=== PATIENT | female | born 1945 | race Caucasian/White ===

== ENCOUNTER → 2017-04-18 | Outpatient (CLI) | payer MEDICARE, OTHER ==
--- NOTE | 2017-04-19 13:32 | MM ---
Reason for exam: screening (asymptomatic). Last mammogram was performed 1 year ago. History: Patient is postmenopausal. Family history of breast cancer in mother at age 30 and breast cancer in paternal grandmother at age 80. Benign excisional biopsy of the right breast, 1990. Benign excisional biopsy of the right breast, 1984. Benign excisional biopsy of the right breast. Physical Findings: A clinical breast exam by your physician is recommended on an annual basis and results should be correlated with mammographic findings. MG 3D Screening Mammo W/Cad Bilateral CC and MLO view(s) were taken. Prior study comparison: April 16, 2016, bilateral MG 3d screening mammo w/cad. April 17, 2015, right breast MG work up mamm w CAD RT. The breast tissue is heterogeneously dense. This may lower the sensitivity of mammography. No significant changes when compared with prior studies. ASSESSMENT: Benign, BI-RAD 2 RECOMMENDATION: Routine screening mammogram of both breasts in 1 year.
== END | disposition home or self-care (01) ==
LOC: RADMAMWWP 09:43
PROVIDERS: ATTEND Family Medicine
DX: Z12.31 Encounter for screening mammogram for malignant neoplasm of breast (principal)
CPT/HCPCS: 77063; G0202

== ENCOUNTER 2018-02-15 07:48 | Day surgery (SDC) | payer MEDICARE, OTHER ==
[2018-02-13 09:13] VITALS: BMI 21.9
[~2018-02-15 07:48] MED LIST: LACTATED RINGERS 1,000 ML IV SCH
[2018-02-15 08:16] VITALS: TEMP 99
[2018-02-15 08:32] LABS: Glucose,Whole Blood 97 mg/dL (75-99)
[2018-02-15] MEDS ORDERED: PROPOFOL 10 MG/ML 20 ML VIAL IV ONE (08:34)
--- NOTE | 2018-02-15 08:39 | P.GSHP ---
History of Present Illness H&P Date: 02/15/18 CHIEF COMPLAINT: Colon screen HISTORY OF PRESENT ILLNESS: The patient is a 72-year-old female who presents for colon screen. Lower endoscopy was offered for further evaluation and management. PAST MEDICAL HISTORY: Please see list. PAST SURGICAL HISTORY: Please see list. MEDICATIONS: Please see list. ALLERGIES: Please see list. SOCIAL HISTORY: No illicit drug use FAMILY HISTORY: No reports of Crohn disease or ulcerative colitis. REVIEW OF ORGAN SYSTEMS: CONSTITUTIONAL: No reports of fevers or chills. PHYSICAL EXAM: VITAL SIGNS: Stable GENERAL: Well-developed pleasant in no acute distress. HEENT: No scleral icterus. Extraocular movements grossly intact. Moist buccal mucosa. NECK: Supple without lymphadenopathy. CHEST: Unlabored respirations. Equal bilateral excursions. CARDIOVASCULAR: Regular rate and rhythm. Distal 2+ pulses. ABDOMEN: Soft, nontender, nondistended. MUSCULOSKELETAL: No clubbing, cyanosis, or edema. ASSESSMENT: 1. Colon screen. PLAN: 1. Recommend proceeding with a lower endoscopy Past Medical History Past Medical History: Diabetes Mellitus, Hyperlipidemia, Hypertension Additional Past Medical History / Comment(s): "extra heart beat on occasion" History of Any Multi-Drug Resistant Organisms: None Reported Past Surgical History: Cholecystectomy Past Anesthesia/Blood Transfusion Reactions: Previous Problems w/ Anesthesia Additional Past Anesthesia/Blood Transfusion Reaction / Comment(s): "came to during last colonoscopy" Smoking Status: Never smoker - Past Family History Mother Family Medical History: No Reported History Sister(s) Additional Family Medical History / Comment(s): "bleeding in spine she had been on blood thinner" Medications and Allergies Home Medications Medication Instructions Recorded Confirmed Type Aspirin EC [Ecotrin] 81 mg PO DAILY 03/21/14 02/15/18 History Atorvastatin [Lipitor] 40 mg PO DAILY 03/21/14 02/15/18 History Carvedilol [Coreg] 25 mg PO BID 03/21/14 02/15/18 History Omeprazole [PriLOSEC] 20 mg PO DAILY 03/21/14 02/15/18 History Telmisartan 40 mg PO HS 03/21/14 02/15/18 History metFORMIN HCL [Glucophage] 500 mg PO TID 03/21/14 02/15/18 History Cholecalciferol (Vitamin D3) 2,000 unit PO DAILY 02/13/18 02/15/18 History [Vitamin D3] Multivitamins, Thera [Multivitamin 1 tab PO DAILY 02/13/18 02/15/18 History (formulary)] Telmisartan/Hydrochlorothiazid 1 tab PO DAILY 02/13/18 02/15/18 History [Telmisartan-Hctz 40-12.5 mg Tb] amLODIPine BESYLATE [Norvasc] 5 mg PO BID 02/13/18 02/15/18 History Allergies Allergy/AdvReac Type Severity Reaction Status Date / Time codeine AdvReac Nausea Verified 02/13/18 08:59 Surgical - Exam Vital Signs Temp Pulse Resp BP Pulse Ox 99.0 F 68 14 120/71 95 02/15/18 08:15 02/15/18 08:15 02/15/18 08:15 02/15/18 08:15 02/15/18 08:15
--- NOTE | 2018-02-15 09:06 | P.PCN ---
Date of Procedure: 02/15/18 Description of Procedure: PREOPERATIVE DIAGNOSIS: Colonoscopy screening. POSTOPERATIVE DIAGNOSIS: Colonoscopy screening. Diverticulosis, severe sigmoid colon External hemorrhoids Internal hemorrhoids OPERATION: Colonoscopy to the ileocecal valve. SURGEON: Juanita Ross MD. ANESTHESIA: MAC. INDICATIONS: The patient is a 72-year-old female who presents for colonoscopy screening. Benefits and risks were described and informed consent was obtained. DESCRIPTION OF PROCEDURE: The patient had undergone Gatorade, MiraLAX and Dulcolax prep. She had been brought into the operating room and laid in the left lateral decubitus position. After adequate intravenous sedation, the rectum was examined with 2% lidocaine jelly. External hemorrhoids were encountered. The rectal tone was within normal limits. No lesions were palpated in the rectal vault. An Olympus colonoscope was advanced to the ascending colon. She had severe redundant and tortuous sigmoid colon. The ileocecal valve was briefly viewed. The prep was good. The scope was removed with visualization of each mucosal fold. Severe sigmoid [place] diverticulosis was encountered. No colonic polyps were found. No evidence of focal colitis was found. Retroflexion of the scope demonstrated grade 2 internal hemorrhoids without active bleeding or inflammation. The colon was desufflated. The patient had tolerated the procedure well. Withdrawal time was over 6 minutes. FINDINGS: Internal hemorrhoids, grade 2 External prolapsed hemorrhoids, grade 3 No arteriovenous malformations. No adenomatous polyps. No focal colitis. Severe redundant sigmoid diverticulosis. RECOMMENDATIONS: Lower endoscopy in 5 years, 2022 Plan - Discharge Summary New Discharge Prescriptions: No Action metFORMIN HCL [Glucophage] 500 mg PO TID Telmisartan 40 mg PO HS Omeprazole [PriLOSEC] 20 mg PO DAILY Carvedilol [Coreg] 25 mg PO BID Aspirin EC [Ecotrin] 81 mg PO DAILY Atorvastatin [Lipitor] 40 mg PO DAILY amLODIPine BESYLATE [Norvasc] 5 mg PO BID Multivitamins, Thera [Multivitamin (formulary)] 1 tab PO DAILY Telmisartan/Hydrochlorothiazid [Telmisartan-Hctz 40-12.5 mg Tb] 1 tab PO DAILY Cholecalciferol (Vitamin D3) [Vitamin D3] 2,000 unit PO DAILY Discharge Medication List Aspirin EC [Ecotrin] 81 mg PO DAILY 03/21/14 [History] Atorvastatin [Lipitor] 40 mg PO DAILY 03/21/14 [History] Carvedilol [Coreg] 25 mg PO BID 03/21/14 [History] Omeprazole [PriLOSEC] 20 mg PO DAILY 03/21/14 [History] Telmisartan 40 mg PO HS 03/21/14 [History] metFORMIN HCL [Glucophage] 500 mg PO TID 03/21/14 [History] Cholecalciferol (Vitamin D3) [Vitamin D3] 2,000 unit PO DAILY 02/13/18 [History] Multivitamins, Thera [Multivitamin (formulary)] 1 tab PO DAILY 02/13/18 [History ] Telmisartan/Hydrochlorothiazid [Telmisartan-Hctz 40-12.5 mg Tb] 1 tab PO DAILY 02/13/18 [History] amLODIPine BESYLATE [Norvasc] 5 mg PO BID 02/13/18 [History]
[2018-02-15 09:21] LABS: Glucose,Whole Blood 98 mg/dL (75-99)
[2018-02-15 09:30] VITALS: BP 98/54; PULSE 68; RESP 16
== END 2018-02-15 09:51 | disposition home or self-care (01) ==
LOC: ORWHC2ENDO 07:48
PROVIDERS: ATTEND Surgery Plastic and Reconstructive Surgery
DX: Z12.11 Encounter for screening for malignant neoplasm of colon (principal); K57.30 Diverticulosis of large intestine without perforation or abscess without bleeding; K64.1 Second degree hemorrhoids; K64.4 Residual hemorrhoidal skin tags; Q43.8 Other specified congenital malformations of intestine; E11.9 Type 2 diabetes mellitus without complications; E78.5 Hyperlipidemia, unspecified; I10 Essential (primary) hypertension; K21.9 Gastro-esophageal reflux disease without esophagitis; Z90.49 Acquired absence of other specified parts of digestive tract; Z79.84 Long term (current) use of oral hypoglycemic drugs; Z79.82 Long term (current) use of aspirin; Z79.899 Other long term (current) drug therapy; Z88.5 Allergy status to narcotic agent
CPT/HCPCS: J2704; G0121; 45378

== ENCOUNTER → 2018-03-13 | Outpatient (CLI) | payer MEDICARE, OTHER ==
[2018-03-13 10:39] LABS: Blood Urea Nitrogen 15 mg/dL (7-17)
--- NOTE | 2018-03-13 12:33 | CT ---
EXAMINATION TYPE: CT abdomen pelvis w con DATE OF EXAM: 03/13/2018 COMPARISON: March 21, 2014 HISTORY: Patient complains of diverticulosis. CT DLP: 723 mGycm CONTRAST: CT scan of the abdomen and pelvis is performed with Oral Contrast and with IV Contrast, patient injec michael with 100 mL of Isovue 300. FINDINGS: LUNG BASES-: Left-sided pneumonectomy changes again appreciated with elevation left hemidiaphragm. LIVER/GB: No calcified gallstones. No space occupying hepatic lesion. Biliary tree is of normal ca liber. PANCREAS: No inflammation. No distinct mass. SPLEEN: No splenic enlargement. No lesion seen. ADRENALS: No nodule. No thickening. KIDNEYS/BLADDER: No hydronephrosis. No nephrolithiasis. No distinct renal mass. Urinary bladder g rossly unremarkable. BOWEL: Normal appendix. Normal bowel caliber. No inflammation. Fat-containing umbilical hernia. Sig moid diverticulosis without diverticulitis. GENITAL ORGANS: No gross abnormality. LYMPH NODES: No greater than 1cm abdominal or pelvic lymph nodes are appreciated. AORTA: No significant abnormality. OSSEOUS STRUCTURES: No significant abnormality is seen. OTHER: No significant additional abnormality is seen. IMPRESSION: 1. No acute process identified. 2. Sigmoid diverticulosis without diverticulitis.
== END | disposition home or self-care (01) ==
LOC: RADCTMAIN 09:56
PROVIDERS: ATTEND Surgery Plastic and Reconstructive Surgery
DX: K57.30 Diverticulosis of large intestine without perforation or abscess without bleeding (principal)
CPT/HCPCS: 82565; 84520; 74177; 36415; Q9967

== ENCOUNTER → 2018-04-19 | Outpatient (CLI) | payer MEDICARE, OTHER ==
--- NOTE | 2018-04-19 16:22 | BD ---
EXAMINATION TYPE: Axial Bone Density DATE OF EXAM: 04/19/2018 COMPARISON: NONE CLINICAL HISTORY: Height: 5 FT 1 IN Weight: 129 FRAX RISK QUESTIONS: Family History (Parent hip fracture): YES Secondary Osteoporosis: RISK FACTORS HISTORY OF: Active: YES Postmenopausal woman: AGE 57 Lost more than 2 inches in height since high school: YES MEDICATIONS: Additional Medications: TELMISARTAN HTC, METFORMIN, AMLODIPINE BESYLATE, COREG, LIPITOR Additional History: EXAM MEASUREMENTS: Bone mineral densitometry was performed using the [employer] System. Bone mineral density as measured about the Lumbar spine is: ----- L1-L4(G/cm2): 1.395 T Score Values are as follows: ----- L2: 1.6 ----- L3: 2.2 ----- L4: 2.4 ----- L1-L4: 1.8 Bone mineral density has: INCREASED 1.9 % since study of: 2015 Bone mineral density about the R hip (g/cm2): 0.905 Bone mineral density about the L hip (g/cm2): 0.881 T Score values are as follows: -----R Neck: -1.0 -----L Neck: -1.1 -----R Total: 0.0 -----L Total: -0.3 Bone mineral density has: DECREASED -1.0 % since study of: 2015 IMPRESSION: Osteopenia (T Score between -2.5 and -1). There is slightly increased risk of fracture and the patient may be considered for treatment. Re-Screen 2-5 years. NOTE: T-SCORE=SD OF THE YOUNG ADULT MEAN.
--- NOTE | 2018-04-20 15:21 | MM ---
Reason for exam: screening (asymptomatic). Last mammogram was performed 1 year ago. History: Patient is postmenopausal. Family history of breast cancer in mother at age 30 and breast cancer in paternal grandmother at age 80. Benign excisional biopsy of the right breast, 1990. Benign excisional biopsy of the right breast, 1984. Benign excisional biopsy of the right breast. Physical Findings: A clinical breast exam by your physician is recommended on an annual basis and results should be correlated with mammographic findings. MG 3D Screening Mammo W/Cad Bilateral CC and MLO view(s) were taken. Prior study comparison: April 18, 2017, bilateral MG 3d screening mammo w/cad. April 16, 2016, bilateral MG 3d screening mammo w/cad. The breast tissue is heterogeneously dense. This may lower the sensitivity of mammography. Stable benign calcifications. There is no discrete abnormality. No significant changes when compared with prior studies. ASSESSMENT: Benign, BI-RAD 2 RECOMMENDATION: Routine screening mammogram of both breasts in 1 year.
== END ==
LOC: RADMAMWWP 14:29
PROVIDERS: ATTEND Family Medicine
DX: Z12.31 Encounter for screening mammogram for malignant neoplasm of breast (principal); M85.80 Other specified disorders of bone density and structure, unspecified site; Z78.0 Asymptomatic menopausal state
CPT/HCPCS: 77063; 77067; 77080

== ENCOUNTER → 2019-04-20 | Outpatient (CLI) | payer MEDICARE, OTHER ==
--- NOTE | 2019-04-24 08:35 | MM ---
Reason for exam: screening (asymptomatic). Last mammogram was performed 1 year ago. History: Patient is postmenopausal. Family history of breast cancer in mother at age 30 and breast cancer in paternal grandmother at age 80. Benign excisional biopsy of the right breast, 1990. Benign excisional biopsy of the right breast, 1984. Benign excisional biopsy of the right breast. Physical Findings: A clinical breast exam by your physician is recommended on an annual basis and results should be correlated with mammographic findings. MG 3D Screening Mammo W/Cad Bilateral CC and MLO view(s) were taken. Prior study comparison: April 19, 2018, bilateral MG 3d screening mammo w/cad. April 18, 2017, bilateral MG 3d screening mammo w/cad. There are scattered fibroglandular densities. No significant changes when compared with prior studies. ASSESSMENT: Negative, BI-RAD 1 RECOMMENDATION: Routine screening mammogram of both breasts in 1 year.
== END | disposition home or self-care (01) ==
LOC: RADMAMWWP 08:50
PROVIDERS: ATTEND Family Medicine
DX: Z12.31 Encounter for screening mammogram for malignant neoplasm of breast (principal)
CPT/HCPCS: 77063; 77067

== ENCOUNTER → 2020-04-30 | Outpatient (CLI) | payer MEDICARE, OTHER ==
--- NOTE | 2020-04-30 09:44 | BD ---
EXAMINATION TYPE: Axial Bone Density DATE OF EXAM: 04/30/2020 COMPARISON: NONE CLINICAL HISTORY: Postmenopausal female Height: 62 Weight: 120.6 FRAX RISK QUESTIONS: Alcohol (3 or more units per day): no Family History (Parent hip fracture): yes Glucocorticoids (More than 3mos): no (Ex: prednisone, prednisolone, methylprednisolone, dexamethasone, and hydrocortisone). History of Fracture in Adulthood: no Secondary Osteoporosis: 1. Type 1 Diabetes: no 2. Hyperthyroidism: no 3. Menopause before 45: no 4. Malnutrition: no 5. Chronic liver disease: no Rheumatoid Arthritis: no Current Tobacco Use: no RISK FACTORS HISTORY OF: Family History of Osteoporosis: no Active: yes Diet low in dairy products/other sources of calcium: yes Postmenopausal woman: age 57 Lost more than 2 inches in height since high school: yes MEDICATIONS: TELMISARTAN HTC, METFORMIN, AMLODIPINE BESYLATE, COREG , LIPITOR Additional History: EXAM MEASUREMENTS: Bone mineral densitometry was performed using the [employer] System. Bone mineral density as measured about the Lumbar spine is: ----- L1-L4(G/cm2): 1.376 T Score Values are as follows: ----- L2: 1.0 ----- L3: 2.5 ----- L4: 2.5 ----- L1-L4: 1.6 Bone mineral density has: decreased -0.4 % since study of: 04.19.2018 Bone mineral density about the R hip (g/cm2): 0.928 Bone mineral density about the L hip (g/cm2): 0.884 T Score values are as follows: -----R Neck: -0.8 -----L Neck: -1.1 -----R Total: 0.1 -----L Total: -0.4 Bone mineral density has: decreased -0.6 % since study of: 04.19.2018 IMPRESSION: Normal (Values between +1 and -1 indicate normal bone mass). Consider repeating this study in 5 year s or sooner if there is some new clinical indication. NOTE: T-SCORE=SD OF THE YOUNG ADULT MEAN.
--- NOTE | 2020-05-01 09:02 | MM ---
Reason for exam: screening (asymptomatic). Last mammogram was performed 1 year ago. History: Patient is postmenopausal. Family history of breast cancer in mother at age 30 and breast cancer in paternal grandmother at age 80. Benign excisional biopsy of the right breast, 1990. Benign excisional biopsy of the right breast, 1984. Benign excisional biopsy of the right breast. Physical Findings: A clinical breast exam by your physician is recommended on an annual basis and results should be correlated with mammographic findings. MG 3D Screening Mammo W/Cad Bilateral CC and MLO view(s) were taken. Prior study comparison: April 20, 2019, bilateral MG 3d screening mammo w/cad. April 19, 2018, bilateral MG 3d screening mammo w/cad. The breast tissue is heterogeneously dense. This may lower the sensitivity of mammography. Focal asymmetry upper left MLO view. ASSESSMENT: Incomplete: need additional imaging evaluation, BI-RAD 0 RECOMMENDATION: Special view mammogram of the left breast. If lesion persists on supplemental views, image directed ultrasound is recommended. [facility] will attempt to contact patient to return for supplemental views and ultrasound if indicated.
== END | disposition home or self-care (01) ==
LOC: RADMAMWWP 08:14
PROVIDERS: ATTEND Family Medicine
DX: Z12.31 Encounter for screening mammogram for malignant neoplasm of breast (principal); Z78.0 Asymptomatic menopausal state
CPT/HCPCS: 77063; 77067; 77080

== ENCOUNTER → 2020-05-02 | Outpatient (CLI) | payer MEDICARE, OTHER ==
--- NOTE | 2020-05-02 08:28 | MM ---
Reason for exam: additional evaluation requested from abnormal screening. Last mammogram was performed less than 1 month ago. History: Patient is postmenopausal. Family history of breast cancer in mother at age 30 and breast cancer in paternal grandmother at age 80. Benign excisional biopsy of the right breast, 1990. Benign excisional biopsy of the right breast, 1984. Benign excisional biopsy of the right breast. Physical Findings: Nurse did not find any significant physical abnormalities on exam. MG 3D Work Up W/Cad LT Spot compression CC, spot compression MLO, and LM view(s) were taken of the left breast. Prior study comparison: April 30, 2020, bilateral MG 3d screening mammo w/cad. April 20, 2019, bilateral MG 3d screening mammo w/cad. Persistent density 5cm from nipple 3-4 o'clock left breast. These results were verbally communicated with the patient and result sheet given to the patient on 05/02/20. ASSESSMENT: Incomplete: need additional imaging evaluation, BI-RAD 0 RECOMMENDATION: Ultrasound of the left breast.
--- NOTE | 2020-05-02 08:29 | USB ---
Reason for exam: additional evaluation requested from abnormal screening. History: Patient is postmenopausal. Family history of breast cancer in mother at age 30 and breast cancer in paternal grandmother at age 80. Benign excisional biopsy of the right breast, 1990. Benign excisional biopsy of the right breast, 1984. Benign excisional biopsy of the right breast. US Breast Workup Limited LT Left limited breast ultrasound including focal area of concern, retroareolar and axilla demonstrates no cystic or solid lesion seen. These results were verbally communicated with the patient and result sheet given to the patient on 05/02/20. ASSESSMENT: Probably benign, BI-RAD 3 RECOMMENDATION: Follow-up diagnostic mammogram of the left breast in 6 months.
== END | disposition home or self-care (01) ==
LOC: RADMAMWWP 06:54
PROVIDERS: ATTEND Family Medicine
DX: R92.8 Other abnormal and inconclusive findings on diagnostic imaging of breast (principal)
CPT/HCPCS: 77065; 76642; G0279; 77061

== ENCOUNTER → 2020-11-26 | Outpatient (CLI) | payer MEDICARE, OTHER ==
--- NOTE | 2020-11-26 10:05 | MM ---
Reason for exam: follow-up at short interval from prior study. Last mammogram was performed 7 months ago. History: Patient is postmenopausal. Family history of breast cancer in mother at age 30 and breast cancer in paternal grandmother at age 80. Benign excisional biopsy of the right breast, 1990. Benign excisional biopsy of the right breast, 1984. Benign excisional biopsy of the right breast. Physical Findings: Nurse did not find any significant physical abnormalities on exam. MG 3D Diag Mammo W/Cad LT CC and MLO view(s) were taken of the left breast. Prior study comparison: May 02, 2020, left breast MG 3d work up w/cad LT. April 30, 2020, bilateral MG 3d screening mammo w/cad. The breast tissue is heterogeneously dense. This may lower the sensitivity of mammography. Stable calcifications. No significant new findings when compared with previous films. These results were verbally communicated with the patient and result sheet given to the patient on 11/26/20. ASSESSMENT: Probably benign, BI-RAD 3 RECOMMENDATION: Follow-up diagnostic mammogram of both breasts in 5 months. Back on schedule for April 2021.
== END | disposition home or self-care (01) ==
LOC: RADMAMWWP 08:06
PROVIDERS: ATTEND Family Medicine
DX: R92.8 Other abnormal and inconclusive findings on diagnostic imaging of breast (principal)
CPT/HCPCS: 77065; G0279; 77061

== ENCOUNTER → 2021-01-15 | Outpatient (CLI) | payer MEDICARE, OTHER ==
[2021-01-16 05:27] LABS: African American GFR (CKD) 99.6 (60.0-200.0); Anion Gap 14.7 mmol/L (4.00-12.00); BUN/Creat Ratio 27.14 Ratio (12.00-20.00); Calcium 9.8 mg/dL (8.7-10.3); Carbon Dioxide 26.3 mmol/L (21.6-31.8); Magnesium 1.2 mg/dL (1.5-2.4); Potassium 3.3 mmol/L (3.5-5.5)
== END | disposition home or self-care (01) ==
LOC: LABWHC1 14:22
PROVIDERS: ATTEND Internal Medicine Interventional Cardiology
DX: I47.2 Ventricular tachycardia (principal)
CPT/HCPCS: 36415; 80048; 83735

== ENCOUNTER → 2021-02-04 | Outpatient (CLI) | payer MEDICARE, OTHER ==
[2021-02-04 20:56] LABS: African American GFR (CKD) 104.8 (60.0-200.0); BUN/Creat Ratio 28.33 Ratio (12.00-20.00); Calcium 10.2 mg/dL (8.7-10.3); Non-African American GFR(CKD) 90.4 (60.0-200.0); Potassium 3.7 mmol/L (3.5-5.5)
== END | disposition home or self-care (01) ==
LOC: LABWHC1 08:20
PROVIDERS: ATTEND Internal Medicine Clinical Cardiac Electrophysiology
DX: I44.2 Atrioventricular block, complete (principal)
CPT/HCPCS: 36415; 80048

== ENCOUNTER → 2021-05-01 | Outpatient (CLI) | payer MEDICARE, OTHER ==
--- NOTE | 2021-05-04 12:20 | MM ---
Reason for exam: additional evaluation requested from prior study. Last mammogram was performed 5 months ago. History: Patient is postmenopausal. Family history of breast cancer in mother at age 30 and breast cancer in paternal grandmother at age 80. Benign excisional biopsy of the right breast, 1990. Benign excisional biopsy of the right breast, 1984. Benign excisional biopsy of the right breast. Physical Findings: Nurse did not find any significant physical abnormalities on exam. MG 3D Diag Mammo W/Cad ALLA Bilateral CC, MLO, and spot compression CC view(s) were taken. Prior study comparison: November 26, 2020, left breast MG 3d diag mammo w/cad LT. May 02, 2020, left breast MG 3d work up w/cad LT. April 30, 2020, bilateral MG 3d screening mammo w/cad. April 20, 2019, bilateral MG 3d screening mammo w/cad. Focal asymmetry right and left CC. Left area disperses. Right distortion improves. These results were verbally communicated with the patient and result sheet given to the patient on 05/01/21. ASSESSMENT: Probably benign, BI-RAD 3 RECOMMENDATION: Follow-up diagnostic mammogram of the right breast in 6 months.
== END | disposition home or self-care (01) ==
LOC: RADMAMWWP 11:00
PROVIDERS: ATTEND Family Medicine
DX: N64.89 Other specified disorders of breast (principal); Z80.3 Family history of malignant neoplasm of breast; Z78.0 Asymptomatic menopausal state
CPT/HCPCS: 77066; G0279; 77062

== ENCOUNTER 2021-05-29 21:27 | Emergency (ER) | payer MEDICARE, OTHER ==
--- NOTE | 2021-05-29 23:37 | ED ---
Recheck HPI - General Chief Complaint: Upper Respiratory Infection Stated Complaint: COVID Exposure Time Seen by Provider: 05/29/21 22:08 Source: patient, RN notes reviewed, old records reviewed Mode of arrival: ambulatory Limitations: no limitations - History of Present Illness Initial Comments: This is a 76-year-old female to the emergency room today. Patient presents with her diagnosed positive for coronavirus earlier today. Patient herself has runny nose to her positive coronavirus test. Patient is requesting antibiotics for treatment. Patient has otherwise no complaints no shortness of breath cough. No fever no chest. Patient is fully vaccinated. MD Complaint: abnormal lab (Positive coronavirus test) -: hour(s) Returns Today for: Called Because of Abnormal Lab/Test, other (Patient is here for antibiotic treatment) Symptoms Since Prior Visit: no new symptoms Context: other (none) Associated Symptoms: none, chills Treatments Prior to Arrival: other (none) - Related Data Home Medications Medication Instructions Recorded Confirmed Aspirin EC [Ecotrin] 81 mg PO DAILY 03/21/14 02/15/18 Atorvastatin [Lipitor] 40 mg PO DAILY 03/21/14 02/15/18 Carvedilol [Coreg] 25 mg PO BID 03/21/14 02/15/18 Omeprazole [PriLOSEC] 20 mg PO DAILY 03/21/14 02/15/18 Telmisartan 40 mg PO HS 03/21/14 02/15/18 metFORMIN HCL [Glucophage] 500 mg PO TID 03/21/14 02/15/18 Cholecalciferol (Vitamin D3) 2,000 unit PO DAILY 02/13/18 02/15/18 [Vitamin D3] Multivitamins, Thera [Multivitamin 1 tab PO DAILY 02/13/18 02/15/18 (formulary)] Telmisartan/Hydrochlorothiazid 1 tab PO DAILY 02/13/18 02/15/18 [Telmisartan-Hctz 40-12.5 mg Tb] amLODIPine BESYLATE [Norvasc] 5 mg PO BID 02/13/18 02/15/18 Allergies Allergy/AdvReac Type Severity Reaction Status Date / Time codeine AdvReac Nausea Verified 05/29/21 21:54 Review of Systems ROS Statement: Those systems with pertinent positive or pertinent negative responses have been documented in the HPI. ROS Other: All systems not noted in ROS Statement are negative. Past Medical History Past Medical History: Diabetes Mellitus, Hyperlipidemia, Hypertension Additional Past Medical History / Comment(s): "extra heart beat on occasion" History of Any Multi-Drug Resistant Organisms: None Reported Past Surgical History: Cholecystectomy Past Anesthesia/Blood Transfusion Reactions: Previous Problems w/ Anesthesia Additional Past Anesthesia/Blood Transfusion Reaction / Comment(s): "came to dur ing last colonoscopy" Past Psychological History: No Psychological Hx Reported Smoking Status: Never smoker Past Alcohol Use History: None Reported Past Drug Use History: None Reported - Past Family History Mother Family Medical History: No Reported History Sister(s) Additional Family Medical History / Comment(s): "bleeding in spine she had been on blood thinner" General Exam Limitations: no limitations General appearance: alert, in no apparent distress Head exam: Present: atraumatic, normocephalic, normal inspection Eye exam: Present: normal appearance, PERRL, EOMI. Absent: scleral icterus, conjunctival injection, periorbital swelling ENT exam: Present: normal exam, mucous membranes moist Neck exam: Present: normal inspection. Absent: tenderness, meningismus, lymphadenopathy Respiratory exam: Present: normal lung sounds bilaterally. Absent: respiratory distress, wheezes, rales, rhonchi, stridor Cardiovascular Exam: Present: regular rate, normal rhythm, normal heart sounds. Absent: systolic murmur, diastolic murmur, rubs, gallop, clicks GI/Abdominal exam: Present: soft, normal bowel sounds. Absent: distended, tenderness, guarding, rebound, rigid Extremities exam: Present: normal inspection, full ROM, normal capillary refill. Absent: tenderness, pedal edema, joint swelling, calf tenderness Back exam: Present: normal inspection Neurological exam: Present: alert, oriented X3, CN II-XII intact Psychiatric exam: Present: normal affect, normal mood Skin exam: Present: warm, dry, intact, normal color. Absent: rash Course Vital Signs 05/29/21 21:52 Temperature 97.8 F Pulse Rate 93 Respiratory 15 Rate Blood Pressure 154/81 O2 Sat by Pulse 96 Oximetry - Reevaluation(s) Reevaluation #1: 05/29/21 23:36 Medical record is reviewed Reevaluation #2: 05/29/21 23:36 Patient does prefer elevated treatment here in the emergency department Reevaluation #3: 05/29/21 23:36 Patient has no significant reaction and can be discharged home in no distress Medical Decision Making - Medical Decision Making 76 female to the ER for evaluation positive for coronavirus, patient is here in the ER, his reaction distress patient can be discharged home Disposition Clinical Impression: Coronavirus infection Disposition: HOME SELF-CARE Condition: Good Instructions (If sedation given, give patient instructions): Coronavirus Disease 2019 (COVID-19) Is patient prescribed a controlled substance at d/c from ED?: No Referrals: Baldemar Skinner MD [Primary Care Provider] - 1-2 days
[2021-05-30] MEDS ORDERED: SODIUM CHLORIDE 0.9% 50 ML IVPB ONE (00:30)
[2021-05-30] MEDS ORDERED: CASIRIVIMAB (REGN10933) (EUA) 600 MG, IMDEVIMAB (REGN10987) (EUA) 600 MG in SODIUM CHLO... IVPB ONE (00:30)
[2021-05-30 02:46] VITALS: BP 147/96; PULSE 69; RESP 18; TEMP 98.1
== END 2021-05-30 02:45 | disposition home or self-care (01) ==
LOC: EC 21:27
DX: U07.1 COVID-19 (principal); E11.9 Type 2 diabetes mellitus without complications; E78.5 Hyperlipidemia, unspecified; I10 Essential (primary) hypertension; Z90.49 Acquired absence of other specified parts of digestive tract; Z79.82 Long term (current) use of aspirin; Z79.84 Long term (current) use of oral hypoglycemic drugs; Z88.5 Allergy status to narcotic agent
CPT/HCPCS: 99283; 96365; 87635; Q0243

== ENCOUNTER → 2021-11-09 | Outpatient (CLI) | payer MEDICARE ==
--- NOTE | 2021-11-09 14:11 | MM ---
Reason for exam: follow-up at short interval from prior study. Last mammogram was performed 6 months ago. History: Patient is postmenopausal. Family history of breast cancer in mother at age 30 and breast cancer in paternal grandmother at age 80. Benign excisional biopsy of the right breast, 1990. Benign excisional biopsy of the right breast, 1984. Benign excisional biopsy of the right breast. Physical Findings: A clinical breast exam by your physician is recommended on an annual basis and results should be correlated with mammographic findings. MG 3D Diag Mammo W/Cad RT CC and MLO view(s) were taken of the right breast. Prior study comparison: May 01, 2021, bilateral MG 3d diag mammo w/cad ALLA. November 26, 2020, left breast MG 3d diag mammo w/cad LT. The breast tissue is heterogeneously dense. This may lower the sensitivity of mammography. Focal asymmetry improved but persists. No significant new findings when compared with previous films. Results were given to the patient verbally at the time of the exam. ASSESSMENT: Probably benign, BI-RAD 3 RECOMMENDATION: Follow-up diagnostic mammogram of both breasts in 6 months.
== END | disposition home or self-care (01) ==
LOC: RADMAMWWP 13:30
PROVIDERS: ATTEND Family Medicine
DX: R92.8 Other abnormal and inconclusive findings on diagnostic imaging of breast (principal); Z78.0 Asymptomatic menopausal state; Z80.3 Family history of malignant neoplasm of breast
CPT/HCPCS: 77065; G0279; 77061

== ENCOUNTER → 2022-05-11 | Outpatient (CLI) | payer MEDICARE ==
--- NOTE | 2022-05-11 11:23 | MM ---
Reason for Exam: Follow-up at short interval from prior study. Last screening mammogram was performed 12 month(s) ago. Patient History: Menarche at age 14. First Full-Term at age 30. Postmenopausal. 1990, Benign Excisional Biopsy on the right side. Benign Excisional Biopsy on the right side. 1984, Benign Excisional Biopsy on the right side. Paternal grandmother had breast cancer, age 80. Mother had breast cancer, age 30. Risk Values: Henrietta 5 year model risk: 5.2%. NCI Lifetime model risk: 10.9%. Tissue Density: There are scattered fibroglandular densities. Findings: Analyzed By CAD. There is no significant interval change. No suspicious mass, microcalcification, or architectural distortion. Overall Assessment: Benign, BI-RAD 2 Management: Screening Mammogram of both breasts in 1 year. A clinical breast exam by your physician is recommended on an annual basis and results should be correlated with mammographic findings. This exam should not preclude additional follow-up of suspicious palpable abnormalities. Results were given to the patient verbally at the time of exam. Electronically signed and approved by: Alfonzo Bales M.D. Radiologis
--- NOTE | 2022-05-11 12:34 | BD ---
EXAMINATION TYPE: Axial Bone Density DATE OF EXAM: 05/11/2022 COMPARISON: NONE CLINICAL HISTORY: 77 years year old Female. ICD-10 CODE: Z78.0 asymptomatic menopausal state Height: 5'1 1/2 Weight: 118 FRAX RISK QUESTIONS: Secondary Osteoporosis: RISK FACTORS HISTORY OF: Postmenopausal woman: y MEDICATIONS: Additional Medications: blood pressure, pre diabetic Additional History: EXAM MEASUREMENTS: Bone mineral densitometry was performed using the [employer] System. Bone mineral density as measured about the Lumbar spine is: ----- L1-L4(G/cm2): 1.355 T Score Values are as follows: ----- L1: -0.4 ----- L2: 0.6 ----- L3: 2.5 ----- L4: 2.7 ----- L1-L4: 1.5 Bone mineral density has: Decreased -1.3% since study of: 04/19/2018 Bone mineral density about the R hip (g/cm2): 0.881 Bone mineral density about the L hip (g/cm2): 0.880 T Score values are as follows: -----R Neck: -1.1 -----L Neck: -1.1 -----R Total: -0.4 -----L Total: -0.8 Bone mineral density has: Decreased -5.8% since study of: 04/19/2018 FRAX%s: The graph provided illustrates a 15.1% chance for a major osteoporotic fx and a 6.9% chance f or the hips probability for fx in 10 years time. IMPRESSION: Osteopenia (T Score between -2.5 and -1). There is slightly increased risk of fracture and the patient may be considered for treatment. Re-Screen 2-5 years. NOTE: T-SCORE=SD OF THE YOUNG ADULT MEAN.
== END | disposition home or self-care (01) ==
LOC: RADMAMWWP 10:46
PROVIDERS: ATTEND Family Medicine
DX: R92.8 Other abnormal and inconclusive findings on diagnostic imaging of breast (principal); M85.89 Other specified disorders of bone density and structure, multiple sites; Z78.0 Asymptomatic menopausal state; Z80.3 Family history of malignant neoplasm of breast
CPT/HCPCS: 77080; 77066; G0279; 77062

== ENCOUNTER 2024-01-27 11:10 | Day surgery (SDC) | payer MEDICARE ==
[~2024-01-27 11:10] MED LIST changes: -LACTATED RINGERS 1,000 ML IV SCH; +SODIUM CHLORIDE 0.9% 1,000 ML IV SCH
[2024-01-27] MEDS: SODIUM CHLORIDE 0.9% 500 ML 500 ML IV ONE (11:23)
[2024-01-27 11:33] LABS: Glucose,Whole Blood 120 mg/dL (70-110)
[2024-01-27 11:36] VITALS: RESP 16; TEMP 97.2
[2024-01-27] MEDS ORDERED: LIDOCAINE 1% INJ 10MG/ML (20 ML MDV) ONE (12:13)
[2024-01-27] MEDS: LIDOCAINE 1% INJ 10MG/ML (20 ML MDV) SQ ONE ×2 (12:20→12:24)
[2024-01-27 13:15] VITALS: BP 122/71; PULSE 71
[2024-01-27] MEDS ORDERED: fentaNYL (PF) 50 MCG/ML 2 ML AMP ONE (13:15)
[2024-01-27] MEDS ORDERED: HEPARIN SODIUM 1,000 UN/ML (10ML VL) ONE (13:15)
--- NOTE | 2024-01-27 13:53 | P.PCN ---
Description of Procedure: Procedure: Insertion of Linq loop recorder Indication: VT, lightheadedness, suspected Afib CONSENT:I have discussed the risks, benefits and alternative therapies for the above-mentioned procedure. The patient has indicated understanding and acceptance of the risks and procedures discussed. PROCEDURE: Patient was brought to the catheterization lab in a fasting state. Patient was prepped and draped in the usual fashion. 1% lidocaine was used to anesthetize the area of the left third intercostal space. Using the loop recorder incision device, a small 0.5 cm incision was made in the left 3rd intercostal space. Next the Linq loop recorder was deployed in the 3rd intercostal space subcutaneously using the insertion tool. Thresholds were checked and were excellent at 0.2V. Next the incision was closed using Dermabond. Steristrips were placed over the incision and the procedure was completed. The patient tolerated the procedure well. The patient was transported to the post cath holding area in stable condition. Linq loop recorder serial number: [id number]
== END 2024-01-27 13:17 | disposition home or self-care (01) ==
LOC: CATHEP 11:10
PROVIDERS: ATTEND Internal Medicine
DX: R42 Dizziness and giddiness (principal); I10 Essential (primary) hypertension; I48.91 Unspecified atrial fibrillation; E78.5 Hyperlipidemia, unspecified; E11.9 Type 2 diabetes mellitus without complications; I49.3 Ventricular premature depolarization; Z79.82 Long term (current) use of aspirin; Z79.899 Other long term (current) drug therapy
CPT/HCPCS: 33285; C1764; J0690; J2001

== ENCOUNTER → 2024-05-14 | Outpatient (CLI) | payer MEDICARE ==
--- NOTE | 2024-05-14 10:18 | MM ---
Reason for Exam: Screening (asymptomatic). Last screening mammogram was performed 12 month(s) ago. Patient History: Menarche at age 14. First Full-Term at age 30. Postmenopausal. 1990, Benign Excisional Biopsy on the right side. Benign Excisional Biopsy on the right side. 1984, Benign Excisional Biopsy on the right side. Paternal grandmother had breast cancer, age 80. Mother had breast cancer, age 30. Risk Values: Henrietta 5 year model risk: 5.1%. NCI Lifetime model risk: 9.6%. Prior Study Comparison: 11/09/2021 Right Diagnostic Mammogram, [facility]. 05/11/2022 Bilateral MG 3D diag mammo w/cad [facility], [facility]. 05/12/2023 Bilateral MG 3D screening mammo w/cad, [facility]. Tissue Density: There are scattered areas of fibroglandular density. Findings: Analyzed By CAD. Pacemaker limits evaluation of the left breast. Right breast: There is no suspicious group of microcalcifications or new suspicious mass. Benign-appearing calcifications right breast. Left breast: There is no suspicious group of microcalcifications or new suspicious mass. Benign-appearing calcifications left breast. Overall Assessment: Benign, BI-RAD 2 Management: Screening Mammogram of both breasts in [address] [facility] will attempt to contact patient to return for supplemental views and ultrasound if indicated. Patient should continue monthly self-breast exams. A clinical breast exam by your physician is recommended on an annual basis. This exam should not preclude additional follow-up of suspicious palpable abnormalities. Note on Henrietta scores and lifetime risk: 1. A Henrietta score greater than 3% is considered moderate risk. If this is the case, consider specialist referral to assess eligibility for a risk reducing agent. 2. If overall lifetime risk for the development of breast cancer is 20% or higher, the patient may qualify for future screening with alternating mammogram and breast MRI. [facility], , 05/14/2024 10:13 AM. Electronically signed and approved by: Hunter Floyd DO
== END | disposition home or self-care (01) ==
LOC: RADMAMWWP 08:26
PROVIDERS: ATTEND Family Medicine
CPT/HCPCS: 77063; 77067